=== PATIENT | female | born 1960 | race Caucasian/White ===

== ENCOUNTER 2016-10-06 08:44 | Outpatient (CLI) | payer MEDICARE, OTHER | END 2016-10-06 08:45 | disposition home or self-care (01) | DX: G47.33 Obstructive sleep apnea (adult) (pediatric) (principal) | CPT/HCPCS: 99213; G0463 ==

== ENCOUNTER 2017-10-27 08:45 | Outpatient (CLI) | payer MEDICARE, OTHER | END 2017-10-27 08:46 | disposition home or self-care (01) | LOC: SC 08:45 | PROVIDERS: ATTEND Nurse Practitioner Family | DX: G47.33 Obstructive sleep apnea (adult) (pediatric) (principal) | CPT/HCPCS: 99214; G0463; 99212 ==

== ENCOUNTER 2018-01-27 08:41 | Outpatient (CLI) | payer MEDICARE, OTHER | END 2018-01-27 08:42 | disposition home or self-care (01) | LOC: SC 08:41 | PROVIDERS: ATTEND Nurse Practitioner Family | DX: G47.33 Obstructive sleep apnea (adult) (pediatric) (principal) | CPT/HCPCS: 99214; G0463; 99212 ==

== ENCOUNTER 2019-03-30 09:06 | Outpatient (CLI) | payer MEDICARE, OTHER ==
[2019-03-30 10:19] VITALS: BP 134/70
--- NOTE | 2019-03-30 10:19 | SLEEP CARE CONSULTATION ---
Information from patient questionnaire entered by Genesis Esquivel. I have reviewed and concur with the information entered by Genesis Esquivel. This document represents the service I personally performed and the decisions made by me, Faith Hayward, RN, MSN, OCCUPATIONAL HEALTH PHYSICIAN. History of Present Illness Previous diagnosis: Mild, Obstructive Sleep Apnea-Hypopnea Syndrome AHI: 5.5 Reason for CPAP/BiPAP follow up: annual Accompanied by: Spouse Equipment type: CPAP Equipment obtained from: [employer] Mask style: Nasal (Dreamwear nasal cushion) Mask brand: Respironics Backup mask available: No (as using her spare due to stretching of headgear ) Last cushion change: last week CPAP Compliance Data - Data Reviewed with Patient Average duration of nightly device use: 7.1 Compliance rate %: 92.8 (180 days) Current pressure setting (cmH2O): 6 Humidity settin Average residual AHI: 1.4 Average large leak: 0 Subjective Missed days of use due to: reports: illness (URI) Patient concerns: reports: mask discomfort (nasal soreness tip of inner nostril right), nasal congestion, dry mouth, nose, throat (nasal dryness frequently with soreness noted in nose and reduced with use of chapstick ). denies: aerophagia, air blowing in eyes, mask leak noise, condensation in mask/hose, epistaxis (sinus pressure after use of CPAP after unable to use humidifier), other (sinus headache after uses CPAP since stopped using CPAP, no better with saline nasal spray. ) Observed to snore while using device: No On therapy, patient: reports: sleeping better, awakening more refreshed, being more awake and alert during the day, more rested overall. denies: drowsiness while driving Initial [place] Sleepiness Scale score: 9 Current [place] Sleepiness Scale score: 8 Allergies and Home Medications Known drug allergies: Yes (penicillin, ( bees, nuts, citrus) ) Home medication list reviewed: Yes Allergy and home medication list: Lorazepam 1mg tab two times daily Temazepam 15mg tab one daily at bedtime Omeprazole 20mg cap two daily Losartan/Hydrochlorothiazide 100mg tab one daily Lamotrigine (Lamictal) 100mg tab three daily at bedtime Bupropion 200mg tab twice daily Ambien 10mg tab daily at bedtime Simvastatin 20mg tab one daily at bedtime Latuda 60mg tab daily Vitamin D3 Tab twice daily Multivitamin Tab daily Stool Softener 250mg twice daily Fish Oil 1000mg twice daily Review of Systems Review of systems same as previous: Yes Physical Exam Blood Pressure: 134/70 Cuff size: long Heart Rate: 91 O2 Saturation: 97 Height: 5 ft 7 in Weight (kg): 105.052 kg Body Mass Index: 36.2 BMI Classification: Class 2 Nasal exam: positive: erythema, excoriation Impression and Plan 1. Obstructive Sleep Apnea-Hypopnea Syndrome,mild with good treatment compliance and good apnea control. On CPAP therapy, the patient has better sleep quality and is more rested overall. She has also noted less anxiety and medications have been reduced successfully by her psychiatrist. For nasal dryness, I gave her samples of Alissa Ease nasal cream to use 4 times a day for 7-10 days and as needed. Printed information given and how to obtain more if needed. To reduce sinus headache that appears to be from dryness, I advised her to have a steamy shower before bedtime to add moisture as her use of saline nasal spray does not seem enough. Her current device does not have a functioning humidifier and evidently was not able to get as tried at last visit. So since her current CPAP is over 5 years old and of reasonable use I will update her CPAP device. Newer devices have a better humidity system. I showed her the new CPAP styles and she chose Respironics Dreamstation. Since she has lost weight and plans on losing more, I discussed how significant weight loss can reduce CPAP pressure requirements. Thus she was advised of symptoms to report for pressure adjustment. Patient's apnea severity and rationale for treatment to reduce apnea, improve sleep quality and reduce cardiovascular and cerebrovascular events was reviewed. I also reviewed the benefit of consistent device use of CPAP for hypertension gastric reflux, depression/anxiety. * Update and Continue CPAP pressure at 6 cmH2O * Implement measures to reduce nasal dryness. * Notify me if snoring with mask or feeling that the pressure is too much or too little * Continue to lose weight * Return for follow up in 1 month after new device , or sooner if concerns arise I spent 100% of this [] minute visit face to face with the patient with greater than 50% of this was spent time counseling the patient and coordination of care.
== END 2019-03-30 09:07 | disposition home or self-care (01) ==
LOC: SC 09:06
PROVIDERS: ATTEND Nurse Practitioner Family
DX: G47.33 Obstructive sleep apnea (adult) (pediatric) (principal)
CPT/HCPCS: 99215; G0463; 99212

== ENCOUNTER 2019-06-27 09:07 | Outpatient (CLI) | payer MEDICARE, OTHER ==
[2019-06-27 10:23] VITALS: BP 136/68
--- NOTE | 2019-06-27 10:23 | SLEEP CARE CONSULTATION ---
Information from patient questionnaire entered by Nesha Wilson. I have reviewed and concur with the information entered by Nesha Wilson. This document represents the service I personally performed and the decisions made by me, Faith Hayward, RN, MSN, SWIMMING POOL ATTENDANT. History of Present Illness Previous diagnosis: Mild, Obstructive Sleep Apnea-Hypopnea Syndrome AHI: 5.5 Reason for follow up: first compliance after device update Accompanied by: Spouse Equipment type: CPAP Equipment obtained from: [employer] Mask style: Nasal Mask brand: Respironics (Dreamwear) Backup mask available: Yes Last cushion change: a week ago and changes every 2 weeks Prior sleep studies: Yes Year and Where: 2013 [facility] additional information: The Alissa Ease nasal cream reduced nasal irritation and now using nightly. She continues to have some irritation tip of nose inside right nare. CPAP Compliance Data - Data Reviewed with Patient Average duration of nightly device use: 7h 46m Compliance rate %: 86.7 Current pressure setting (cmH2O): 6 Humidity settin Heated hose settin Average residual AHI: 1.5 Average large leak: 0s Subjective Missed days of use due to: reports: travel (with old CPAP) Patient concerns: reports: mask leak noise (from mask dislodign 3-4 times a night), nasal congestion (chronic but not interferring with use of CPAP. She is aware to increase humidity to reduce nasal congestion. ), dry mouth, nose, throat (very dry when awakens ), other ( headache - chronic that she feels is from her sinus congestion and has had evaluated. ). denies: aerophagia, mask discomfort, air blowing in eyes, condensation in mask/hose, epistaxis Observed to snore while using device: No Current pressure setting perceived as: comfortable On therapy, patient: reports: sleeping better, awakening more refreshed, being more awake and alert during the day, more rested overall. denies: drowsiness while driving Initial [place] Sleepiness Scale score: 9 Current [place] Sleepiness Scale score: 11 Allergies and Home Medications Known drug allergies: Yes (penicillin) Home medication list reviewed: Yes (no changes - see previous visit) Review of Systems Review of systems same as previous: Yes Physical Exam Blood Pressure: 136/68 Cuff size: long Heart Rate: 77 O2 Saturation: 97 Height: 5 ft 7 in Weight: 232 lb Body Mass Index: 36.3 BMI Classification: Obesity Class 2 Impression and Plan 1. Obstructive Sleep Apnea-Hypopnea Syndrome, mild, with good treatment compliance and good apnea control on updated device. On CPAP therapy, the patient has better sleep quality and is more rested overall. For nasal irritation, no skin irritation noted on visiual exam so could be from the mask placement. She has to tighten to keep the mask from dislodging and nose feels sore. Thus I will order a headgear adaptor to keep mask from dislodging to reduce need for over tightening. Thus until then she can loosen mask a little to comfort. For dryness symptoms, she is advised to raise humidity and lower heated hose as shown on sample device. Web Printed instructions given for reference and discussed rationale for changing settings. Patient's apnea severity and rationale for treatment to reduce apnea, improve sleep quality and reduce cardiovascular and cerebrovascular events was reviewed. I also reviewed the benefit of consistent device use of CPAP for hypertension, gastric reflux, depression/anxiety. She is aware to lose weight to reduce apnea risk and overall health risk. * Continue CPAP pressure at 6cmH2O * headgear adaptor * loosen mask * Adjust humidity and heated hose * Notify me if snoring with mask or feeling that the pressure is too much or too little * Attempt to lose weight * Return for follow up in 1 year , or sooner if concerns arise . I spent 100% of this 25 minute visit face to face with the patient with greater than 50% of this was spent time counseling the patient and coordination of care.
== END 2019-06-27 09:08 | disposition home or self-care (01) ==
LOC: SC 09:07
PROVIDERS: ATTEND Nurse Practitioner Family
DX: G47.33 Obstructive sleep apnea (adult) (pediatric) (principal); E66.9 Obesity, unspecified; Z68.36 Body mass index [BMI] 36.0-36.9, adult
CPT/HCPCS: 99214; G0463; 99212

== ENCOUNTER 2020-02-01 16:28 | Emergency (ER) | payer MEDICARE, OTHER ==
[2020-02-01 16:38] VITALS: BP 160/85
[2020-02-01 17:04] LABS: BASOPHILS % (AUTO) 0.4 %; EOSINOPHILS # (AUTO) 0.2 10^3/uL (0.0-0.7); EOSINOPHILS % (AUTO) 2.2 %; LYMPHOCYTES # (AUTO) 3.4 10^3/uL (1.5-3.5); LYMPHOCYTES % (AUTO) 41.7 %; MEAN CORPUSCULAR HEMOGLOBIN 32.4 pg (27.0-31.0); MEAN CORPUSCULAR HGB CONC 34.2 g/dL (32.0-36.0); MEAN CORPUSCULAR VOLUME 94.8 fL (81.0-99.0); MEAN PLATELET VOLUME 10.3 fL (7.9-10.8); MONOCYTES # (AUTO) 0.7 10^3/uL (0.0-1.0); MONOCYTES % (AUTO) 8.6 %; NEUTROPHILS # (AUTO) 3.9 10^3/uL (1.5-6.6); PLT - PLATELET COUNT 366 10^3/uL (130-450); RED BLOOD COUNT 4.01 10^6/uL (4.20-5.40); RED CELL DISTRIBUTION WIDTH 12.9 % (12.0-15.0); WHITE BLOOD COUNT 8.2 x10^3/uL (4.8-10.8)
[2020-02-01 17:10] LABS: INR 0.9 (0.8-1.2); PT - PROTHROMBIN TIME 10.4 secs (9.9-12.6)
--- NOTE | 2020-02-01 17:13 | ED Physician Documentation ---
History of Present Illness - Stated complaint Stated Complaint: BLOOD IN STOOL/URINE - Chief complaint Chief Complaint: Abd Pain - History obtained from History obtained from: Patient - History of Present Illness Timing: Yesterday Pain level max: 5 Pain level now: 3 - Additonal information Additional information: 59-year-old female presents the emergency department with lower abdominal pain since yesterday. Rectal bleeding x3 today. She states bright red blood, the last episode had some clots in it. No fevers. No vomiting. No dysuria. No urinary frequency. Nothing makes it better or worse. She is not on blood thinners. Has never had this happen to her before. [place] [facility] [place] [facility] [place] for evaluation. Review of Systems Constitutional: denies: Fever, Chills Nose: denies: Rhinorrhea / runny nose, Congestion Throat: denies: Sore throat Cardiac: denies: Chest pain / pressure Respiratory: denies: Cough GI: reports: Bloody / black stool. denies: Vomiting, Hematemesis Skin: denies: Rash Musculoskeletal: denies: Neck pain, Back pain Neurologic: denies: Headache PD PAST MEDICAL HISTORY - Past Medical History Past Medical History: Yes Cardiovascular: Hypertension Musculoskeletal: Gout - Present Medications Home Medications: Ambulatory Orders Medication Instructions Recorded Confirmed Ciprofloxacin HCl [Cipro] 500 mg PO BID #20 tablet 02/01/20 metroNIDAZOLE [Flagyl] 500 mg PO TID #30 tablet 02/01/20 - Allergies Allergies/Adverse Reactions: Allergies Allergy/AdvReac Type Severity Reaction Status Date / Time Penicillins Allergy Unknown Verified 02/01/20 16:32 PD ED PE NORMAL - Vitals Vital signs reviewed: Yes - General General: Alert and oriented X 3, No acute distress, Well developed/nourished - HEENT HEENT: PERRL, Moist mucous membranes - Neck Neck: Supple, no meningeal sign - Cardiac Cardiac: RRR, Strong equal pulses - Respiratory Respiratory: No respiratory distress, Clear bilaterally - Abdomen Abdomen: Soft, Non tender, Non distended - Rectal 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 No bleeding. No stool in the rectal vault. No tenderness. No hemorrhoids.) - Derm Derm: Warm and dry - Extremities Extremities: No edema - Neuro Neuro: Alert and oriented X 3 - Psych Psych: Normal mood, Normal affect Results - Vitals Vitals: Vital Signs - 24 hr 02/01/20 16:32 Temperature 37.2 C Heart Rate 89 Respiratory 18 Rate Blood Pressure 160/85 H O2 Saturation 97 Oxygen O2 Source Room air - Labs Labs: Laboratory Tests 02/01/20 02/01/20 02/01/20 16:51 16:51 16:51 WBC 8.2 RBC 4.01 L Hgb 13.0 Hct 38.0 MCV 94.8 MCH 32.4 H MCHC 34.2 RDW 12.9 Plt Count 366 MPV 10.3 Neut # (Auto) 3.9 Lymph # (Auto) 3.4 [place] # (Auto) 0.7 Eos # (Auto) 0.2 Baso # (Auto) 0.0 Absolute Nucleated RBC 0.00 Nucleated RBC % 0.0 PT 10.4 INR 0.9 Sodium Potassium Chloride Carbon Dioxide Anion Gap BUN Creatinine Estimated GFR (MDRD) Glucose Calcium Total Bilirubin AST ALT Alkaline Phosphatase Total Protein Albumin Globulin Albumin/Globulin Ratio Lipase Blood Type O POSITIVE Antibody Screen NEGATIVE 02/01/20 16:51 WBC RBC Hgb Hct MCV MCH MCHC RDW Plt Count MPV Neut # (Auto) Lymph # (Auto) [place] # (Auto) Eos # (Auto) Baso # (Auto) Absolute Nucleated RBC Nucleated RBC % PT INR Sodium 139 Potassium 3.4 L Chloride 100 L Carbon Dioxide 29 Anion Gap 10.0 BUN 15 Creatinine 0.8 Estimated GFR (MDRD) 73 L Glucose 105 H Calcium 9.2 Total Bilirubin 0.5 AST 20 ALT 26 Alkaline Phosphatase 76 Total Protein 7.6 Albumin 3.9 Globulin 3.7 Albumin/Globulin Ratio 1.1 Lipase 32 Blood Type Antibody Screen - Rads (name of study) CT abdomen pelvis Radiology: Prelim report reviewed, EMP read contemporaneously PD MEDICAL DECISION MAKING - ED course Complexity details: reviewed results, re-evaluated patient, considered differential, d/w patient ED course: Patient with stable hematochezia. She is well-appearing, nontoxic. Afebrile. Appears to me that there is some inflammation near the rectosigmoid colon on CT scan, therefore I will treat her for diverticulitis. We will have her follow-up closely with her doctor. She was counseled that her pulmonary nodule also needs follow-up in 12 months with her doctor. Patient counseled regarding signs and symptoms for which I believe and urgent re-evaluation would be necessary. Patient with good understanding of and agreement to plan and is comfortable going home at this time This document was made in part using voice recognition software. While efforts are made to proofread this document, sound alike and grammatical errors may occur. 1. Colonic diverticulosis. No findings to suggest acute diverticulitis. 2. The appendix is not visualized; however there are no ancillary findings to suggest acute appendicitis. 3. 4 mm pulmonary nodule. [address] surveillance recommended. Departure - Departure Disposition: 01 Home, Self Care Clinical Impression: Lower GI bleed Condition: Good Instructions: ED Hematochezia Stable Follow-Up: ASTER DONATO MD [Primary Care Provider] - Within 3 Days Prescriptions: Ciprofloxacin HCl [Cipro] 500 mg PO BID #20 tablet metroNIDAZOLE [Flagyl] 500 mg PO TID #30 tablet Comments: Take all antibiotics until gone. Return if you worsen. This should improve over the next 24 to 48 hours. Return if you develop weakness, lightheadedness, chest pain, shortness of breath or any other new or worrisome symptoms. Discharge Date/Time: 02/01/20 18:53
[2020-02-01 17:17] LABS: ALBUMIN 3.9 g/dL (3.2-5.5); ALBUMIN/GLOBULIN RATIO 1.1 (1.0-2.2); BILIRUBIN,TOTAL 0.5 mg/dL (0.2-1.0); CALCIUM 9.2 mg/dL (8.5-10.3); CREATININE 0.8 mg/dL (0.4-1.0); TOTAL PROTEIN 7.6 g/dL (6.7-8.2)
[2020-02-01] MEDS ORDERED: IOVERSOL 320 100 ML VIAL IVP ONE ×2 (17:19→17:53)
--- NOTE | 2020-02-01 18:15 | CT Report ---
PROCEDURE: Abdomen/Pelvis W INDICATIONS: lower abd pain, rectal bleeding CONTRAST: IV CONTRAST: Optiray 320 ml: 100 PO CONTRAST: *NO PO CONTRAST TECHNIQUE: After the administration of oral and intravenous contrast, 5 mm thick sections acquired from the diap hragms to the symphysis. 5 mm thick coronal and sagittal reformats were acquired. For radiation dos e reduction, the following was used: automated exposure control, adjustment of mA and/or kV accordin g to patient size. COMPARISON: None. FINDINGS: Image quality: Excellent. ABDOMEN: Lung bases: A 4 mm nodule is present at the right lung base (series 4/image 41). Lung bases are other carter clear. Heart is normal size. Heart size is normal. Solid organs: Liver and spleen are normal in size and enhancement. Gallbladder is surgically absent Biliary system is non dilated. Pancreas enhances normally. No adrenal nodules. Kidneys demonstra te normal size and enhancement, without hydronephrosis. Peritoneum and bowel: Bowel loops demonstrate normal wall thickness and caliber. Innumerable diverti cular outpouchings are noted throughout the sigmoid colon. No pericolonic fat stranding or wall thick ening. The appendix is not visualized; however there are no ancillary findings to suggest acute appen dicitis. No free fluid or air. Nodes and vessels: No retroperitoneal or mesenteric adenopathy by size criteria. Aorta and inferior vena cava are normal in size. Miscellaneous: No ventral hernias. PELVIS: Genitourinary: Bladder wall thickness is normal. Miscellaneous: No inguinal hernias or adenopathy. Bones: No suspicious bony lesions. No vertebral body compression fractures. IMPRESSION: 1. Colonic diverticulosis. No findings to suggest acute diverticulitis. 2. The appendix is not visualized; however there are no ancillary findings to suggest acute appendici tis. 3. 4 mm pulmonary nodule. [address] surveillance recommended. Reviewed by: Lupe De La O MD on 02/01/2020 6:14 PM PDT Approved by: Lupe De La O MD on 02/01/2020 6:14 PM PDT Station ID: [id number]
[2020-02-01] MEDS ORDERED: metroNIDAZOLE 250 MG TABLET PO STA (18:39)
[2020-02-01] MEDS ORDERED: CIPROFLOXACIN 250 MG TABLET PO STA (18:39)
== END 2020-02-01 18:53 | disposition home or self-care (01) ==
LOC: ED 16:28
DX: K92.1 Melena (principal); R91.1 Solitary pulmonary nodule; I10 Essential (primary) hypertension
CPT/HCPCS: 36415; 74177; 80053; 83690; 85025; 85610; 86850; 86900; 86901; 99284; A9270; Q9967; 81001; 81003; 87086

== ENCOUNTER 2020-03-07 09:17 | Outpatient (CLI) | payer MEDICARE, OTHER ==
--- NOTE | 2020-03-07 11:11 | MRI Report ---
PROCEDURE: Knee RT W/O INDICATIONS: OSTEOARTHRITIS TECHNIQUE: Noncontrast sagittal PD fast spin echo and T2 fast spin echo with fat saturation, sagittal 3-D gradie nt sequence with fat saturation; coronal T1 spin echo and PD fast spin echo with fat saturation, and axial PD fast spin echo with fat saturation through the knee. COMPARISON: None. FINDINGS: Image quality: Excellent. Menisci: The medial meniscus is intact. There is linear oblique high T2 signal intensity traversing the free edge of the lateral meniscal body, demonstrating inferior articular surface extension, indic ating oblique tearing. Cruciate ligaments: The anterior and posterior cruciate ligaments appear intact. Medial structures: The medial collateral ligament appears intact. Visualized portions of the pes ans erinus tendons appear normal. No abnormal bursal fluid. Lateral structures: The lateral collateral ligament, long and short heads of the biceps femoris tend on appear intact. The popliteus tendon appears normal. Iliotibial band appears normal. Anterior structures: The quadriceps and patellar tendons appear intact. Patellar alignment is geoffrey l. No femoral trochlear dysplasia or ventral trochlear prominence. No edema in the infrapatellar fa t pad. Bones and cartilage: No bone marrow contusions or fractures. The cartilage of the medial and latera l femorotibial compartments, as well as the patellofemoral compartment, mild subchondral degenerative marrow edema within the anterior weightbearing aspect of the medial tibial plateau, as well as the m edial patellar facet and lateral femoral trochlea. There is moderate diffuse articular cartilage loss overlying the weightbearing aspects of the medial femoral condyle and medial tibial plateau. Severe articular cartilage loss overlies the central and lateral femoral trochlea. Severe articular cartilag e loss overlies the patellar apex and lateral facet. Joint space: There is a small knee joint effusion and a trace Combs?s cyst. Multiple intra-articula r loose bodies are present, largest of which is in the lateral suprapatellar recess measuring 10 mm d iameter. Normal appearing synovial plicae are incidentally noted. IMPRESSION: 1. Tricompartmental osteoarthritis with associated articular cartilage loss. 2. Lateral meniscal tearing. 3. Knee joint effusion and intra-articular loose body. Reviewed by: Renee Baldwin MD on 03/07/2020 10:10 AM ADRIANA Approved by: Renee Baldwin MD on 03/07/2020 10:10 AM AKCASS Station ID: [id number]
== END 2020-03-07 09:18 | disposition home or self-care (01) ==
LOC: DI 09:17
PROVIDERS: ATTEND Internal Medicine
DX: M17.11 Unilateral primary osteoarthritis, right knee (principal); S83.281A Other tear of lateral meniscus, current injury, right knee, initial encounter; M25.461 Effusion, right knee

== ENCOUNTER 2020-03-21 10:34 | Day surgery (SDC) | payer MEDICARE, OTHER ==
[2020-03-21] MEDS ORDERED: LACTATED RINGERS 1,000 ML IV ONE (10:39)
[2020-03-21] MEDS ORDERED: MIDAZOLAM 2 MG/2 ML VIAL IVP ONE (12:29)
[2020-03-21] MEDS ORDERED: fentaNYL 250 MCG/5 ML VIAL IVP ONE (12:29)
[2020-03-21] MEDS ORDERED: LIDO GARGLE 30 ML BOTTLE ONE (13:21)
[2020-03-21] MEDS ORDERED: LIDO GARGLE 30 ML BOTTLE PO ONE (13:28)
[2020-03-21] MEDS ORDERED: BENZOCAINE/TETRACAINE/BUTAMBEN 20 GM TOP ONE (13:28)
[2020-03-21 15:29] VITALS: BP 127/58
== END 2020-03-21 10:35 | disposition home or self-care (01) ==
LOC: SDS 10:34
PROVIDERS: ATTEND Surgery
PROC: 0DB78ZX Excision of Stomach, Pylorus, Via Natural or Artificial Opening Endoscopic, Diagnostic (ICD-10-PCS; 2020-03-21)
PROC: 0DB68ZX Excision of Stomach, Via Natural or Artificial Opening Endoscopic, Diagnostic (ICD-10-PCS; 2020-03-21)
PROC: 0DJD8ZZ Inspection of Lower Intestinal Tract, Via Natural or Artificial Opening Endoscopic (ICD-10-PCS; principal; 2020-03-21 12:00)
PROC: 0DB58ZX Excision of Esophagus, Via Natural or Artificial Opening Endoscopic, Diagnostic (ICD-10-PCS; 2020-03-21 12:00)
DX: K62.5 Hemorrhage of anus and rectum (principal); R10.30 Lower abdominal pain, unspecified; K57.30 Diverticulosis of large intestine without perforation or abscess without bleeding; K64.8 Other hemorrhoids; K21.9 Gastro-esophageal reflux disease without esophagitis; Z87.19 Personal history of other diseases of the digestive system; K56.699 Other intestinal obstruction unspecified as to partial versus complete obstruction
CPT/HCPCS: 43239; 45378; A9270; J7120

== ENCOUNTER 2020-06-20 10:42 | Outpatient (CLI) | payer MEDICARE, OTHER ==
--- NOTE | 2020-06-20 11:30 | SLEEP CARE CONSULTATION ---
Information from patient questionnaire entered by Genesis Esquivel. I have reviewed and concur with the information entered by Genesis Esquivel. This document represents the service I personally performed and the decisions made by , Jayshree Crespo ARNP. History of Present Illness Service Date and Time: 06/20/2020 1042 Previous diagnosis: Mild, Obstructive Sleep Apnea-Hypopnea Syndrome AHI: 5.5 (in 2013) Reason for follow up: annual (last seen 2019) Equipment type: CPAP Equipment obtained from: [employer] (getting supplies as needed) Mask style: Nasal Mask brand: Respironics (Dreamwear) Backup mask available: Yes (old mask) Last cushion change: 2 days ago Prior sleep studies: Yes Year and Where: 2013 - [facility] additional information: AMOL EDWARDS was diagnosed to have mild, AHI 5.5, obstructive sleep apnea- hypopnea syndrome and returned today for CPAP therapy annual follow-up. CPAP Compliance Data - Data Reviewed with Patient Average duration of nightly device use: 7.95 Compliance rate %: 99.4 (180 days) Current pressure setting (cmH2O): 6 Humidity settin Heated hose settin Average residual AHI: 1.4 Average large leak: 1 min 29 sec Subjective Patient concerns: reports: air blowing in eyes (every once in a while that adjust well, no complaints), dry mouth, nose, throat (dry nose, uses Alissa ease). denies: aerophagia, mask discomfort, mask leak noise, condensation in mask/hose, nasal congestion, epistaxis, other Observed to snore while using device: No Current pressure setting perceived as: comfortable On therapy, patient: reports: sleeping better, awakening more refreshed, being more awake and alert during the day, more rested overall, other (occasionally sleeping in chair since Covid). denies: drowsiness while driving Initial [place] Sleepiness Scale score: 18 (in 2013) Allergies and Home Medications Drug allergies reviewed: Yes (penicillins) Home medication list reviewed: Yes (no changes) Review of Systems Review of systems same as previous: Yes (no changes) Physical Exam Heart Rate: 81 O2 Saturation: 98 Height: 5 ft 7 in Weight: 233 lb Body Mass Index: 36.5 BMI Classification: Obese Impression and Plan 1. Obstructive Sleep Apnea-Hypopnea Syndrome, mild, with good treatment compliance and good apnea control. On CPAP therapy, the patient has better sleep quality and is more rested overall. She occasionally gets some nasal dryness with CPAP therapy and is using the Alissa ease with good results. She gets a little air in eyes occasionally but a mask adjustment corrects this, no complaint of dry eyes. Patient's apnea severity and rationale for treatment to reduce apnea, improve sleep quality and reduce cardiovascular and cerebrovascular events was reviewed. I also reviewed the benefit of consistent device use of CPAP for hypertension, gastric reflux, and depression/anxiety. * Continue autoCPAP pressure at 6 cmH2O * Notify me if snoring with mask or feeling that the pressure is too much or too little * Attempt to lose weight * Call this office if any problems using CPAP * Return for follow up in 1 year, or sooner if concerns arise Counseling Topics: Spare mask, Weight loss health impact Visit Type: In Office Time Spent with Patient (minutes): 16 Provider Statement: I spent 100% of the Face to Face Visit with the patient with greater than 50% spent counseling the patient and coordination of care.
== END 2020-06-20 10:43 | disposition home or self-care (01) ==
LOC: SC 10:42
PROVIDERS: ATTEND Nurse Practitioner Family
DX: G47.33 Obstructive sleep apnea (adult) (pediatric) (principal); E66.9 Obesity, unspecified; Z68.36 Body mass index [BMI] 36.0-36.9, adult
CPT/HCPCS: 99213; G0463; 99212

== ENCOUNTER 2021-04-22 10:42 | Outpatient (CLI) | payer MEDICARE, OTHER ==
--- NOTE | 2021-04-25 10:35 | Mammography Report ---
BILATERAL DIGITAL SCREENING MAMMOGRAM 3D/2D: 04/22/2021 CLINICAL: Routine screening. Comparison is made to exams dated: 06/21/2017 mammogram, 06/02/2016 mammogram, 05/30/2015 mammogram, 05/21/2014 mammogram, and 06/01/2013 mammogram - [facility]. The tissue of both breasts is p redominantly fatty. There is a 1 cm x 1.2 cm oval asymmetry with a circumscribed margin in the left breast at 1 o'clock p osterior depth. No other significant masses, calcifications, or other findings are seen in either breast. IMPRESSION: INCOMPLETE: NEEDS ADDITIONAL IMAGING EVALUATION The 1 cm x 1.2 cm oval asymmetry in the left breast is indeterminate. Additional views with possible ultrasound are recommended. This exam was interpreted at Station ID: [id number]. NOTE: For mammograms, a report in lay terms will be sent to the patient. Approximately 15% of breast malignancies will not be visualized mammographically. In the management of a palpable breast mass, a negative mammogram must not discourage biopsy of a clinically suspicious lesion. Electronically Signed By: Jeet Peter acr/:04/25/2021 09:56:26 ACR BI-RADS Category 0: Incomplete 3340F PARENCHYMAL PATTERN: (F) - The breast(s) demonstrate(s) diffuse fatty replacement. BI-RADS CATEGORY: (0) - 0 Mammo and [place] [id number] Immediate follow-up LATERALITY: (L)
== END 2021-04-22 10:43 | disposition home or self-care (01) ==
LOC: DI.N 10:42
DX: Z12.31 Encounter for screening mammogram for malignant neoplasm of breast (principal); R92.8 Other abnormal and inconclusive findings on diagnostic imaging of breast

== ENCOUNTER 2021-05-23 10:40 | Outpatient (CLI) | payer MEDICARE, OTHER ==
--- NOTE | 2021-05-26 10:38 | Ultrasound Report ---
LIMITED ULTRASOUND OF LEFT BREAST: 05/23/2021 CLINICAL: Patient returns today to evaluate a focal asymmetry in the left breast. Comparison is made to exams dated: 05/23/2021 mammogram, 04/22/2021 mammogram - [facility], 06/21/2018 mammogram, and 06/21/2017 mammogram - [facility]. Color flow ultrasound of the left breast 2 o'clock region was performed. Singh scale images of the r eal-time examination were reviewed. There is a benign 1 cm x 0.9 cm x 0.5 cm oval cyst with a smooth internal wall in the left breast at 2 o'clock middle depth 7 cm from the nipple. This oval cyst is anechoic with a well-defined boundary and posterior acoustic enhancement. This correlates with mammography findings. IMPRESSION: BENIGN There is no sonographic evidence of malignancy. The 1 cm x 0.9 cm x 0.5 cm oval cyst in the left breast is consistent with a simple cyst and is benig n. A 1 year screening mammogram is recommended. This exam was interpreted at Station ID: [id number]. Electronically Signed By: Dillon richardson/cherry:05/23/2021 12:06:56 Ultrasound BI-RADS: 2 Benign BI-RADS CATEGORY: (2) - 2 RECOMMENDATION: (ANNUAL) - Recommend routine annual screening mammography. [id number] 1 year screening LATERALITY: (B)
--- NOTE | 2021-05-26 10:38 | Mammography Report ---
UNILATERAL LEFT DIGITAL DIAGNOSTIC MAMMOGRAM 3D/2D: 05/23/2021 CLINICAL: Patient returns today to evaluate a focal asymmetry in the left breast. Comparison is made to exams dated: 04/22/2021 mammogram - [facility], 06/21/2018 mamm ogram, and 06/21/2017 mammogram - [facility]. There are scattered fibroglandular elements in left breast. There is a 1 cm oval focal asymmetry with a circumscribed margin in the left breast at 2 o'clock post erior depth. This is seen in additional views. No other significant masses or calcifications are seen in the breast. IMPRESSION: INCOMPLETE: NEEDS ADDITIONAL IMAGING EVALUATION The 1 cm oval focal asymmetry in the left breast is indeterminate. Targeted ultrasound is recommende d for further evaluation, which will be performed immediately following this exam. This exam was interpreted at Station ID: [id number]. NOTE: For mammograms, a report in lay terms will be sent to the patient. Approximately 15% of breast malignancies will not be visualized mammographically. In the management of a palpable breast mass, a negative mammogram must not discourage biopsy of a clinically suspicious lesion. Electronically Signed By: Dillon richardson/cherry:05/23/2021 12:05:58 ACR BI-RADS Category 0: Incomplete 3340F PARENCHYMAL PATTERN: (A) - The breast(s) demonstrate(s) scattered fibroglandular densities. BI-RADS CATEGORY: (0) - 0 Ultrasound [id number] Immediate follow-up LATERALITY: (L)
== END 2021-05-23 10:41 | disposition home or self-care (01) ==
LOC: DI 10:40
PROVIDERS: ATTEND Internal Medicine
DX: N60.02 Solitary cyst of left breast (principal)

== ENCOUNTER 2021-07-31 11:03 | Outpatient (CLI) | payer MEDICARE, OTHER ==
[2021-07-31 11:45] VITALS: BP 116/73
--- NOTE | 2021-07-31 11:45 | SLEEP CARE CONSULTATION ---
Information from patient questionnaire entered by Julien Morillo MA. I have reviewed and concur with the information entered by Julien Morillo MA. This document represents the service I personally performed and the decisions made by , Jayshree Crespo ARNP. History of Present Illness Service Date and Time: 07/31/2021 1103 Previous diagnosis: Mild, Obstructive Sleep Apnea-Hypopnea Syndrome AHI: 5.5 (in 2013) Reason for follow up: annual Equipment type: CPAP Equipment obtained from: [employer] (getting supplies as needed) Mask style: Nasal Mask brand: Respironics Backup mask available: Yes (old mask) Last cushion change: today Prior sleep studies: Yes Year and Where: 2013 - [facility] HPI additional information: AMOL EDWARDS was diagnosed to have mild, AHI 5.5, obstructive sleep apnea-hypopn ea syndrome and returned today for CPAP therapy annual follow-up. Sleep Study - Results Prior sleep studies: Yes [facility] Compliance Data - Data Reviewed with Patient Average duration of nightly device use: 7 HOURS 31 MINUTES Compliance rate %: 95.6 Current pressure setting (cmH2O): 6 Humidity settin Heated hose settin Average residual AHI: 1.7 Average large leak: 5 secs Subjective Missed days of use due to: reports: other (CANT SLEEP) Patient concerns: reports: mask leak noise (just needs adjustment), nasal congestion, dry mouth, nose, throat (dry mouth, nose, throat). denies: aerophagia, mask discomfort, air blowing in eyes, condensation in mask/hose, epistaxis, other Observed to snore while using device: No Current pressure setting perceived as: comfortable On therapy, patient: reports: sleeping better, awakening more refreshed, being more awake and alert during the day, more rested overall. denies: drowsiness while driving Initial [place] Sleepiness Scale score: 18 (in 2013) Current [place] Sleepiness Scale score: 4 (2020) Allergies and Home Medications Known drug allergies: Yes ([facility]) Home medication list reviewed: Yes (no new medications) Review of Systems Review of systems same as previous: Yes (no changes) Physical Exam Vital signs obtained and entered by: Isabel MORILLO CMA AABECKI Blood Pressure: 116/73 (LEFT) Cuff size: wrist Heart Rate: 92 O2 Saturation: 98 (WITH MASK) Height: 5 ft 7 in Weight: 229 lb (WITH CLOTHES) Body Mass Index: 35.9 BMI Classification: Obese Impression and Plan 1. Obstructive Sleep Apnea-Hypopnea Syndrome, mild, with good treatment compliance and good apnea control. On CPAP therapy, the patient has better sleep quality and is more rested overall. Patient has had some oral and nasal dryness. Oral dryness can be reduced by adjusting humidity setting higher or heated hose lower or by adjusting both settings. Printed instructions given on how to change humidity and heated hose settings with rationale explaining why to change. Patient advised that chronic oral dryness can affect dental health and advised to follow up with dentist. In addition, there are oral dryness products that can be used to reduce dryness such as Biotene products, Dry mouth rinse and Xylomelts. Patient to discuss best option with dentist. Patient has a Dreamstation. I informed the patient that [employer] has a recall on several devices like the patients machine. Patient was encouraged to register their device online with [employer] for the recall to see if their device is affected. If their device is affected they should start a claim. Patient denies any black particles seen in machine or hoses, any unusual odors coming from device. Patient has not experienced any physical symptoms such as upper airway irritation, headache, skin or eye irritation, asthma, nausea/vomiting, difficulty breathing or chest pain. If patient is not able to sleep due to waking up choking, gasping for air or other respiratory distress that they may decide to continue using it until it is either replaced or repaired. Patient states she will continue to use the CPAP and monitor for any debris. Patient voiced understanding and agreement with plan. Patient's apnea severity and rationale for treatment to reduce apnea, improve sleep quality and reduce cardiovascular and cerebrovascular events was reviewed. I also reviewed the benefit of consistent device use of CPAP for hypertension, gastric reflux, depression and anxiety. Patient encouraged to lose weight to improve overall health and to reduce apneas. * Continue CPAP pressure at 6 cmH2O * Patient to register her CPAP with [employer] for recall * Notify me if snoring with mask or feeling that the pressure is too much or too little * Attempt to lose weight * Call this office if any problems using CPAP * Return for follow up in 1 year, or sooner if concerns arise Counseling Topics: Spare mask, Weight loss health impact Visit Type: In Office Time Spent with Patient (minutes): 20 Provider Statement: I spent 100% of the Face to Face Visit with the patient with greater than 50% spent counseling the patient and coordination of care.
== END 2021-07-31 11:04 | disposition home or self-care (01) ==
LOC: SC 11:03
PROVIDERS: ATTEND Nurse Practitioner Family
DX: G47.33 Obstructive sleep apnea (adult) (pediatric) (principal); E66.9 Obesity, unspecified; Z68.35 Body mass index [BMI] 35.0-35.9, adult
CPT/HCPCS: 99213; G0463; 99212

== ENCOUNTER 2022-02-23 14:06 | Outpatient (CLI) | payer MEDICARE, OTHER ==
--- NOTE | 2022-02-23 16:59 | DEXA Report ---
PROCEDURE: Dexa Spine and/or Hip INDICATIONS: POSTMENOPAUSAL TECHNIQUE: Dual energy x-ray absorptiometry (DXA) was performed on a [employer] System. Regions measur ed are the AP Spine, femoral neck, and if needed forearm. COMPARISON: None. FINDINGS: Lumbar Spine: Bone Mineral Density 1.240 g/cm/cm,T score 0.5. Left Hip: Bone Mineral Density 0.970 g/cm/cm,T score -0.3. Left Femoral Neck: Bone Mineral Density 1.002 g/cm/cm, T score -0.3. (T score greater or equal to -1.0: NORMAL) (T score from -1.1 to -2.4: OSTEOPENIA) (T score less than or equal to -2.5 to: OSTEOPOROSIS) Impression: Normal bone mineral density. Patients with diagnosis of osteoporosis or osteopenia should have regular bone mineral density assess ment. For those eligible for Medicare, routine testing is allowed once every 2 years. Testing frequ ency can be increased for patients who have rapidly progressing disease or for those who are receivin g medical therapy to restore bone mass. Reviewed by: Eduin Agustin MD on 02/23/2022 4:58 PM PDT Approved by: Eduin Agustin MD on 02/23/2022 4:58 PM PDT Station ID: [id number]
== END 2022-02-23 14:07 | disposition home or self-care (01) ==
LOC: DI 14:06
PROVIDERS: ATTEND Nurse Practitioner Family
DX: Z78.0 Asymptomatic menopausal state (principal)

== ENCOUNTER 2022-07-03 16:15 | Outpatient (CLI) | payer MEDICARE, OTHER | END 2022-07-03 16:16 | disposition home or self-care (01) | LOC: LAB.N 16:15 | PROVIDERS: ATTEND Nurse Practitioner Family | DX: M10.9 Gout, unspecified (principal) | CPT/HCPCS: 36415; 84550 ==

== ENCOUNTER 2022-09-08 14:55 | Outpatient (CLI) | payer MEDICARE, OTHER ==
[2022-09-08 15:41] VITALS: BP 114/68
--- NOTE | 2022-09-08 15:41 | SLEEP CARE CONSULTATION ---
Information from patient questionnaire entered by Marbin Zepeda. I have reviewed and concur with the information entered by Marbin Zepeda. This document represents the service I personally performed and the decisions made by me, Jayshree Crespo ARNP. History of Present Illness Service Date and Time: 09/08/2022 1455 Previous diagnosis: Mild, Obstructive Sleep Apnea-Hypopnea Syndrome AHI: 5.5 (in 2013) Reason for follow up: annual (LAST SEEN 07/2021) Equipment type: CPAP ([employer] Dreamstation, recertified) Equipment obtained from: [employer] (getting supplies as needed) Mask style: Nasal Backup mask available: Yes (old mask) Last cushion change: 1 week Prior sleep studies: Yes Year and Where: 2013 - [facility] additional information: AMOL EDWARDS was diagnosed to have mild, AHI 5.5, obstructive sleep apnea- hypopnea syndrome and returned today for CPAP therapy annual follow-up. Sleep Study - Results Prior sleep studies: Yes Year and Where: 2013 - [facility] CPAP Compliance Data - Data Reviewed with Patient Average duration of nightly device use: 7 hours 27 minutes Compliance rate %: 92.2 (176/180 days used) Current pressure setting (cmH2O): 4-20 (90% - 6 cmH2O) Average residual AHI: 1.7 Central apnea: 0.3 Obstructive apnea: 0.6 Average large leak: 1 min 46 secs Subjective Patient concerns: reports: air blowing in eyes. denies: aerophagia, mask discomfort, mask leak noise, condensation in mask/hose, nasal congestion, dry mouth, nose, throat, epistaxis Observed to snore while using device: No Current pressure setting perceived as: comfortable () On therapy, patient: reports: sleeping better, awakening more refreshed, being more awake and alert during the day, more rested overall. denies: drowsiness while driving Initial [place] Sleepiness Scale score: 18 (in 2013) Current [place] Sleepiness Scale score: 7 (09/08/22) Allergies and Home Medications Drug allergies reviewed: Yes (penicillins) Home medication list reviewed: Yes (no changes) Review of Systems Review of systems same as previous: Yes (no changes) Physical Exam Vital signs obtained and entered by: MARBIN Seth MA Blood Pressure: 114/68 (LEFT ARM) Cuff size: regular Heart Rate: 83 O2 Saturation: 98 Height: 5 ft 7 in Weight: 212 lb Weight change since last visit: 17 lb loss Body Mass Index: 33.2 BMI Classification: Obese Impression and Plan 1. Obstructive Sleep Apnea-Hypopnea Syndrome, mild, with good treatment compliance and good apnea control. On CPAP therapy, the patient has better sleep quality and is more rested overall. Patient has significant improvement of their sleep apnea and are satisfied with current CPAP therapy. Patient would like the pressure adjusted, she sometimes feels it is too low. Her pressure setting used to be at 6 cmH2O and now with her replacement device from [employer] it is set at 4-20 cmH2O. The patients pressure will be changed to autoCPAP 5-7 cmH20 for patient comfort. Patient advised to contact me if pressure change is uncomfortable so that it can be adjusted. Goals for apnea control discussed. Patient denies problems with oral dryness, nasal congestion, epistaxis, skin irritation or aerophagia. Patient's apnea severity and rationale for treatment to reduce apnea, improve sleep quality and reduce cardiovascular and cerebrovascular events was reviewed. I also reviewed the benefit of consistent device use of CPAP for hypertension, gastric reflux, depression and anxiety. 2. Obesity, unspecified. Currently patients BMI is 33.2. She has lost about 17 pounds since starting water aerobics 5 days a week for an hour. She states she feels better physically and emotionally than she did before she started exercising. Obesity increases the risk of apnea, CPAP pressure requirements and overall health risks especially cardiovascular and diabetes. Thus patient is advised to continue to try to lose weight. * Change auto CPAP pressure to 5-7 cmH2O * Update supplies * Notify me if snoring with mask or feeling that the pressure is too much or too little * Attempt to lose weight * Call this office if any problems using CPAP * Return for follow up in 1 year, or sooner if concerns arise Counseling Topics: Spare mask, Weight loss health impact Visit Type: In Office Time Spent with Patient (minutes): 23 Provider Statement: I spent 100% of the Face to Face Visit with the patient with greater than 50% spent counseling the patient and coordination of care.
== END 2022-09-08 14:56 | disposition home or self-care (01) ==
LOC: SC 14:55
PROVIDERS: ATTEND Nurse Practitioner Family
DX: G47.33 Obstructive sleep apnea (adult) (pediatric) (principal); E66.9 Obesity, unspecified; Z68.33 Body mass index [BMI] 33.0-33.9, adult
CPT/HCPCS: 99213; G0463; 99212

== ENCOUNTER 2022-09-10 12:08 | Outpatient (CLI) | payer MEDICARE, OTHER ==
--- NOTE | 2022-09-11 11:45 | Mammography Report ---
BILATERAL DIGITAL SCREENING MAMMOGRAM 3D/2D: 09/10/2022 CLINICAL: Routine screening. Comparison is made to exams dated: 05/23/2021 ultrasound, 05/23/2021 mammogram, 04/22/2021 mammogram - [facility], 06/21/2018 mammogram, 06/21/2017 mammogram, and 06/02/2016 mammogram - [facility]. Both breasts are heterogeneously dense, which may obscure small masses (category c / 51-75% glandular tissue). There are benign masses in both breasts. No significant masses, calcifications, or other findings are seen in either breast. There has been no significant interval change. IMPRESSION: BENIGN There is no mammographic evidence of malignancy. A 1 year screening mammogram is recommended. Based on the Tyrer Cuzick model (a risk assessment model) the patients lifetime risk is 7.3% and her 10 year risk is 3.1%. According to the ACR, ACS, and NCCN guidelines, an annual breast MRI exam jossie g with mammogram is recommended if the patients lifetime risk is 20% or greater. This exam was interpreted at Station ID: [id number]. NOTE: For mammograms, a report in lay terms will be sent to the patient. Approximately 15% of breast malignancies will not be visualized mammographically. In the management of a palpable breast mass, a negative mammogram must not discourage biopsy of a clinically suspicious lesion. Electronically Signed By: Andres conrad/penrad:09/10/2022 17:15:12 ACR BI-RADS Category 2: Benign Finding(s) 3342F PARENCHYMAL PATTERN: (D) - The breast(s) demonstrate(s) heterogeneously dense fibroglandular roland noguera. BI-RADS CATEGORY: (2) - 2 RECOMMENDATION: (ANNUAL) - Recommend routine annual screening mammography. [id number] 1 year screening LATERALITY: (B)
== END 2022-09-10 12:09 | disposition home or self-care (01) ==
LOC: DI.N 12:08
DX: Z12.31 Encounter for screening mammogram for malignant neoplasm of breast (principal)

== ENCOUNTER 2022-12-17 08:50 | Outpatient (CLI) | payer MEDICARE, OTHER ==
[2022-12-17 11:51] LABS: BASOPHILS % (AUTO) 0.4 %; EOSINOPHILS # (AUTO) 0.3 10^3/uL (0.0-0.7); EOSINOPHILS % (AUTO) 4.5 %; HGB - HEMOGLOBIN 12.6 g/dL (12.0-16.0); LYMPHOCYTES # (AUTO) 2.5 10^3/uL (1.5-3.5); LYMPHOCYTES % (AUTO) 32.9 %; MEAN CORPUSCULAR HEMOGLOBIN 30.7 pg (27.0-31.0); MEAN CORPUSCULAR HGB CONC 32.3 g/dL (32.0-36.0); MEAN CORPUSCULAR VOLUME 94.9 fL (81.0-99.0); MONOCYTES # (AUTO) 0.5 10^3/uL (0.0-1.0); MONOCYTES % (AUTO) 6.4 %; NEUTROPHILS # (AUTO) 4.3 10^3/uL (1.5-6.6); NEUTROPHILS % (AUTO) 55.7 %; PLT - PLATELET COUNT 371 10^3/uL (130-450); RED BLOOD COUNT 4.11 10^6/uL (4.20-5.40); RED CELL DISTRIBUTION WIDTH 12.5 % (12.0-15.0); WHITE BLOOD COUNT 7.6 x10^3/uL (4.8-10.8)
[2022-12-17 13:02] LABS: ESTIMATED AVERAGE GLUCOSE 100 mg/dL (70-100); HEMOGLOBIN A1c% 5.1 % (4.27-6.07)
[2022-12-17 13:55] LABS: ALBUMIN/GLOBULIN RATIO 1.1 (1.0-2.2); ALKALINE PHOSPHATASE 106 IU/L (42-121); ALT ALANINE AMINOTRANSFERASE 31 IU/L (10-60); AST ASPARTATE AMINOTRANSFERASE 24 IU/L (10-42); BILIRUBIN,TOTAL 0.6 mg/dL (0.2-1.0); BUN - BLOOD UREA NITROGEN 15 mg/dL (6-20); CALCIUM 9.3 mg/dL (8.5-10.3); CARBON DIOXIDE - CO2 26 mmol/L (21-32); CHLORIDE 106 mmol/L (101-111); CHOL/HDL RATIO 3.3 (<4.4); CHOLESTEROL 198 mg/dL; CREATININE 0.8 mg/dL (0.4-1.0); GFR - MDRD 72 (>89); GLUCOSE 98 mg/dL (70-100); HDL CHOLESTEROL 60 mg/dL; LDL CHOLESTEROL,CALCULATED 94 mg/dL; LDL/HDL RATIO 1.6 (<4.4); POTASSIUM 3.8 mmol/L (3.5-5.0); SODIUM 139 mmol/L (135-145); TOTAL PROTEIN 7.5 g/dL (6.7-8.2); TRIGLYCERIDES 221 mg/dL; VLDL CHOLESTEROL 44 mg/dL
[2022-12-17 13:58] LABS: THYROID STIMULATING HORMONE 0.55 uIU/mL (0.34-5.60)
== END 2022-12-17 08:51 | disposition home or self-care (01) ==
LOC: LAB.N 08:50
PROVIDERS: ATTEND Nurse Practitioner Family
DX: E78.5 Hyperlipidemia, unspecified (principal); I10 Essential (primary) hypertension; E66.9 Obesity, unspecified; Z79.899 Other long term (current) drug therapy
CPT/HCPCS: 36415; 80053; 80061; 83036; 83721; 83735; 84443; 85025

== ENCOUNTER 2023-04-05 14:52 | Emergency (ER) | payer MEDICARE, OTHER ==
[2023-04-05 15:12] LABS: BASOPHILS # (AUTO) 0.1 10^3/uL (0.0-0.1); BASOPHILS % (AUTO) 0.5 %; EOSINOPHILS # (AUTO) 0.3 10^3/uL (0.0-0.7); EOSINOPHILS % (AUTO) 3.4 %; HCT - HEMATOCRIT 37.4 % (37.0-47.0); HGB - HEMOGLOBIN 12.5 g/dL (12.0-16.0); LYMPHOCYTES # (AUTO) 3.9 10^3/uL (1.5-3.5); LYMPHOCYTES % (AUTO) 40.4 %; MEAN CORPUSCULAR HEMOGLOBIN 30.5 pg (27.0-31.0); MEAN CORPUSCULAR HGB CONC 33.4 g/dL (32.0-36.0); MEAN CORPUSCULAR VOLUME 91.2 fL (81.0-99.0); MEAN PLATELET VOLUME 9.9 fL (7.9-10.8); MONOCYTES % (AUTO) 10.8 %; NEUTROPHILS # (AUTO) 4.3 10^3/uL (1.5-6.6); NEUTROPHILS % (AUTO) 44.6 %; PLT - PLATELET COUNT 405 10^3/uL (130-450); RED CELL DISTRIBUTION WIDTH 12.5 % (12.0-15.0); WHITE BLOOD COUNT 9.6 x10^3/uL (4.8-10.8)
[2023-04-05] MEDS ORDERED: SODIUM CHLORIDE 0.9% 1,000 ML IV STA (15:13)
--- NOTE | 2023-04-05 15:16 | ED Physician Documentation ---
PD HPI CHEST PAIN - Stated complaint Stated Complaint: CHEST PX,NUMBNESS - Chief complaint Chief Complaint: Cardiac - History obtained from History obtained from: Patient - Additional information Additional information: Patient is a 62-year-old female with a history of hypertension and hyperlipidemia presenting for evaluation of left-sided chest pain that feels like a tight band wrapping around her chest starting approximately 25 minutes prior to arrival. Patient states she was just sitting there. She reports feeling associated nausea. She got up and went to have a bowel movement which did not change her symptoms. Her has a history of coronary artery disease and carries nitro with him. He gave her 2 doses of nitroglycerin. Patient reports that currently she is symptom-free. Patient went to her water aerobics class this morning and denies having any episodes of chest pain or feeling decreased energy or shortness of air. She did recently just get over COVID at the beginning of the month. Denies fever in the past few days. She does not take aspirin regularly.No recent travel or immobilization.No history of PE or DVT. Review of Systems Constitutional: denies: Fever Cardiac: reports: Chest pain / pressure Respiratory: denies: Dyspnea GI: denies: Abdominal Pain Musculoskeletal: denies: Back pain PD PAST MEDICAL HISTORY - Past Medical History Cardiovascular: Hypertension Respiratory: None Neuro: None Endocrine/Autoimmune: None GI: None GRID MAKER: None : None HEENT: None Psych: None Musculoskeletal: Gout Derm: None - Past Surgical History Past Surgical History: Yes General: Cholecystectomy, Colonoscopy /GRID MAKER: Hysterectomy - Present Medications Home Medications: Ambulatory Orders Medication Instructions Recorded Confirmed Colchicine 0.6 mg PO DAILY 03/21/20 09/08/22 Cyanocobalamin (Vitamin B-12) 1,000 mcg PO DAILY 03/21/20 09/08/22 [Vitamin B-12] Estrogens, Conjugated [Premarin] 0.625 mg PO DAILY 03/21/20 09/08/22 Lurasidone HCl [Latuda] 60 mg PO DAILY 03/21/20 09/08/22 Omeprazole 20 mg PO DAILY 03/21/20 09/08/22 Simvastatin 20 mg PO DAILY 03/21/20 09/08/22 Zolpidem Tartrate 10 mg PO DAILY 03/21/20 09/08/22 amLODIPine [Norvasc] 5 mg PO ONCE 03/21/20 09/08/22 - Allergies Allergies/Adverse Reactions: Allergies Allergy/AdvReac Type Severity Reaction Status Date / Time Penicillins Allergy Unknown Verified 09/08/22 15:06 - Social History Does the pt smoke?: No Smoking Status: Never smoker Does the pt drink ETOH?: No Does the pt have substance abuse?: No - Immunizations Immunizations are current?: Yes PD ED PE NORMAL - General General: Alert and oriented X 3, No acute distress, Well developed/nourished - HEENT HEENT: Atraumatic - Neck Neck: Supple, no meningeal sign - Cardiac Cardiac: RRR, No murmur, Strong equal pulses - Respiratory Respiratory: No respiratory distress, Clear bilaterally - Abdomen Abdomen: Soft, Non tender, Non distended - Derm Derm: Warm and dry - Extremities Extremities: No calf tenderness / cord - Neuro Neuro: Normal speech Results - Vitals Vitals: Vital Signs - 24 hr 04/05/23 14:56 Temperature 36.0 C L Heart Rate 79 Respiratory 24 Rate Blood Pressure 104/58 L O2 Saturation 98 Oxygen O2 Source Room air - EKG (time done) 1505 EKG releavant findings:: EKG personally interpreted by author of this note. Relevant findings are: Rate 73, normal sinus rhythm, no STEMI, no ST depressions, motion artifact in inferior leads Rate: Rate (enter#) (73) Rhythm: NSR Ischemia: No: ST elevation c/w ischemia Compare to prior EKG: Old EKG unavailable 1531 EKG releavant findings:: EKG personally interpreted by author of this note. Relevant findings are: Rate 68, normal sinus rhythm, no STEMI, no ST depressions Rate: Rate (enter#) (68) Rhythm: NSR Ischemia: No: ST elevation c/w ischemia Compare to prior EKG: Changed from prior EKG (Artifact in inferior leads is improved) - Labs Labs: Laboratory Tests 04/05/23 04/05/23 04/05/23 15:05 15:05 17:15 WBC 9.6 RBC 4.10 L Hgb 12.5 Hct 37.4 MCV 91.2 MCH 30.5 MCHC 33.4 RDW 12.5 Plt Count 405 MPV 9.9 Neut # (Auto) 4.3 Lymph # (Auto) 3.9 H [place] # (Auto) 1.0 Eos # (Auto) 0.3 Baso # (Auto) 0.1 Absolute Nucleated RBC 0.00 Nucleated RBC % 0.0 Sodium 137 Potassium 3.7 Chloride 101 Carbon Dioxide 27 Anion Gap 9.0 BUN 10 Creatinine 0.8 Estimated GFR (MDRD) 72 L Glucose 105 H Calcium 10.2 Total Bilirubin 0.6 AST 33 ALT 55 Alkaline Phosphatase 166 H Troponin I High Sens 3.2 3.2 Total Protein 8.0 Albumin 4.4 Globulin 3.6 Albumin/Globulin Ratio 1.2 Lipase 18 PD Medical Decision Making - ED course Complexity details: reviewed results, re-evaluated patient, d/w patient ED course: Patient is a 62-year-old female presenting for evaluation of chest pain lasting 20 minutes while at rest that is since resolved. EKG is reviewed and nonischemic. CBC, chemistry, troponin were obtained and reviewed without significant findings. Chest x-ray which I reviewed is negative for large effusion or consolidation. Patient is remained chest pain-free here. She is low risk per the heart score. Repeat troponin remains negative and without a significant delta from initial. Patient counseled on need for close follow-up with her primary care provider as well as concerning symptoms to return for. 1608 - Patient is resting comfortably with no further chest pain. Reviewed labs from initial work-up and plan for repeat troponin. 1752 - Patient feeling well. No recurrence of symptoms here. Departure - Departure Disposition: 01 Home, Self Care Clinical Impression: Chest pain Condition: Stable Instructions: ED Chest Pain Atypical Unkn Cause Follow-Up: Margarette Cook ARNP [Provider Admit Priv/Credential] - Comments: At this time the exact cause for your chest pain remains unclear. I do recommend close follow-up with your primary care provider and would recommend you call tomorrow for the first available appointment As you may need further testing such as a stress test. In the meanwhile if you develop any recurrence of your symptoms or have any new symptoms then please return to the emergency department for another evaluation. In the meanwhile if you are able to tolerate it I would recommend taking a baby aspirin daily until you follow-up with your primary care provider. Forms: PCP List
[2023-04-05 15:30] LABS: ALBUMIN 4.4 g/dL (3.2-5.5)
[2023-04-05 15:36] LABS: TROPONIN I HIGH SENSITIVITY 3.2 ng/L (2.3-14.8)
--- NOTE | 2023-04-05 15:45 | XRAY Report ---
PROCEDURE: Chest 1 View X-Ray INDICATIONS: Chest pain TECHNIQUE: One view of the chest was acquired. COMPARISON: None. FINDINGS: Surgical changes and devices: None. Lungs and pleura: or pneumothorax. Lungs are clear. Blunting of left costophrenic angle is seen con cerning for small left pleural effusion. No definite focal infiltrate. No pneumothorax. Mediastinum: Mediastinal contours appear normal. Heart size is normal. Bones and chest wall: No suspicious bony lesions. Overlying soft tissues appear unremarkable. IMPRESSION: Suggestion of trace left pleural effusion. No definite focal infiltrate, or pneumothorax. Reviewed by: Eduin Agustin MD on 04/05/2023 3:43 PM PDT Approved by: Eduin Agustin MD on 04/05/2023 3:43 PM PDT Station ID: [id number]
[2023-04-05 15:50] LABS: ALBUMIN/GLOBULIN RATIO 1.2 (1.0-2.2); BILIRUBIN,TOTAL 0.6 mg/dL (0.2-1.0); CALCIUM 10.2 mg/dL (8.5-10.3); CREATININE 0.8 mg/dL (0.6-1.3); POTASSIUM 3.7 mmol/L (3.5-4.5)
[2023-04-05 18:32] VITALS: BP 134/78; O2SAT 100
== END 2023-04-05 18:24 | disposition home or self-care (01) ==
LOC: ED 14:52
DX: R07.9 Chest pain, unspecified (principal)
CPT/HCPCS: 36415; 80053; 83690; 84484; 85025; 93005; 99283; 99284

== ENCOUNTER 2023-09-08 12:44 | Outpatient (CLI) | payer MEDICARE, OTHER ==
--- NOTE | 2023-09-08 13:09 | Sleep Patient Instructions ---
Sleep Center Visit Summary - Patient Visit Information Reason for Visit: Annual Visit - Patient Instructions Additional Instructions: You will continue with CPAP therapy with pressure set at 5-7 cmH2O. A supply prescription will be updated with your DME. We encourage you to continue to try to lose weight. Please follow up with the sleep care office in 1 year. - Clinic Information Contact: [facility] [address] [place] [address] [email or web address] T: [phone]
--- NOTE | 2023-09-08 13:13 | SLEEP CARE CONSULTATION ---
Information from patient questionnaire entered by Elizabeth Zepeda. I have reviewed and concur with the information entered by Elizabeth Zepeda. This document represents the service I personally performed and the decisions made by me, Jayshree Crespo ARNP. History of Present Illness Service Date and Time: 09/08/2023 1244 Previous diagnosis: Mild, Obstructive Sleep Apnea-Hypopnea Syndrome AHI: 5.5 (in 2013) Reason for follow up: annual (LAST SEEN 08/2022) Accompanied by: Spouse (Denis) Equipment type: CPAP (MCCARTHY Dreamstation, recertified NEED SD CARD) Equipment obtained from: [employer] (getting supplies as needed) Mask style: Nasal Backup mask available: Yes Last cushion change: 9 days ago Prior sleep studies: Yes Year and Where: 2013 - [facility] HPI additional information: AMOL EDWARDS was diagnosed to have mild, AHI 5.5, obstructive sleep apnea- hypopnea syndrome and returned with spouse today for CPAP therapy annual follow- up. Sleep Study - Results Prior sleep studies: Yes Year and Where: 2013 - [facility] CPAP Compliance Data - Data Reviewed with Patient Average duration of nightly device use: 8 HRS 1 MIN 19 SECS Compliance rate %: 95.1 (09/08/22-09/07/23; 360/365 days used) Current pressure setting (cmH2O): 5-7 Average residual AHI: 1.9 Central apnea: 0.3 Obstructive apnea: 0.6 Hypopnea: 1 Average large leak: 7 mins 36 secs Subjective Patient concerns: reports: dry mouth, nose, throat (dry mouth occasional; mouth may be coming open). denies: aerophagia, mask discomfort, air blowing in eyes, mask leak noise, condensation in mask/hose, nasal congestion, epistaxis Observed to snore while using device: No Current pressure setting perceived as: comfortable On therapy, patient: reports: sleeping better, awakening more refreshed, being more awake and alert during the day, more rested overall. denies: drowsiness while driving Initial [place] Sleepiness Scale score: 18 (in 2013) Current [place] Sleepiness Scale score: 10 Allergies and Home Medications Known drug allergies: Yes (penicillin) Drug allergies reviewed: Yes Home medication list reviewed: Yes (no changes) Allergy and home medication list: Allergies Penicillins Allergy (Verified 09/06/23 13:47) Unknown Review of Systems Review of systems same as previous: Yes (no changes) Physical Exam Vital signs obtained and entered by: ELIZABETH Seth MA Blood Pressure: 139/74 (RIGHT ARM) Cuff size: regular Heart Rate: 79 O2 Saturation: 98 Height: 5 ft 7 in Weight: 196 lb 3.2 oz Weight change since last visit: 16 lb loss Body Mass Index: 30.7 BMI Classification: Obese Impression and Plan 1. Obstructive Sleep Apnea-Hypopnea Syndrome, mild, with good treatment compliance and good apnea control. On CPAP therapy, the patient has better sleep quality and is more rested overall. Patient has significant improvement of their sleep apnea and is satisfied with current CPAP therapy. Patient occasionally gets dry mouth, more in the last month or so. We reviewed how to increase her humidity as needed if the dry mouth becomes more of an issue. We will follow-up with her next year. Patient's apnea severity and rationale for treatment to reduce apnea, improve sleep quality and reduce cardiovascular and cerebrovascular events was reviewed. I also reviewed the benefit of consistent device use of CPAP for hypertension, gastric reflux, depression and anxiety. 2. Obesity, unspecified. Currently patients BMI is 30.7. She has lost weight since last year. Obesity increases the risk of apnea, CPAP pressure requirements and overall health risks especially cardiovascular and diabetes. Thus patient is advised to continue to try to lose weight. * Continue auto CPAP pressure at 5-7 cmH2O * Update supply prescription * Notify me if snoring with mask or feeling that the pressure is too much or too little * Attempt to lose weight * Call this office if any problems using CPAP * Return for follow up in 12 months, or sooner if concerns arise Counseling Topics: Spare mask, Weight loss health impact Prescriptions: Device supplies Follow up with Sleep Care in: 1 year Visit Type: In Office Time Spent with Patient (minutes): 20 Provider Statement: I spent 100% of the Face to Face Visit with the patient with greater than 50% spent counseling the patient and coordination of care.
[2023-09-08 13:14] VITALS: BP 139/74; O2SAT 98
== END 2023-09-08 12:45 | disposition home or self-care (01) ==
LOC: SC 12:44
PROVIDERS: ATTEND Nurse Practitioner Family
DX: G47.33 Obstructive sleep apnea (adult) (pediatric) (principal); E66.9 Obesity, unspecified; Z68.30 Body mass index [BMI] 30.0-30.9, adult; I10 Essential (primary) hypertension; E78.5 Hyperlipidemia, unspecified; R10.10 Upper abdominal pain, unspecified
CPT/HCPCS: 36415; 80053; 80061; 82150; 83690; 85025; 99213; G0463; 83721; 99212

== ENCOUNTER 2023-09-08 13:17 | Outpatient (CLI) | payer MEDICARE, OTHER ==
[2023-09-08 17:49] LABS: BASOPHILS % (AUTO) 0.4 %; EOSINOPHILS # (AUTO) 0.2 10^3/uL (0.0-0.7); EOSINOPHILS % (AUTO) 2.6 %; HCT - HEMATOCRIT 38.9 % (37.0-47.0); HGB - HEMOGLOBIN 12.6 g/dL (12.0-16.0); LYMPHOCYTES # (AUTO) 3.1 10^3/uL (1.5-3.5); LYMPHOCYTES % (AUTO) 39.1 %; MEAN CORPUSCULAR HEMOGLOBIN 31.1 pg (27.0-31.0); MEAN CORPUSCULAR HGB CONC 32.4 g/dL (32.0-36.0); MEAN PLATELET VOLUME 11.7 fL (7.9-10.8); MONOCYTES # (AUTO) 0.6 10^3/uL (0.0-1.0); MONOCYTES % (AUTO) 7.9 %; NEUTROPHILS # (AUTO) 3.9 10^3/uL (1.5-6.6); NEUTROPHILS % (AUTO) 49.9 %; PLT - PLATELET COUNT 343 10^3/uL (130-450); RED BLOOD COUNT 4.05 10^6/uL (4.20-5.40); RED CELL DISTRIBUTION WIDTH 12.4 % (12.0-15.0); WHITE BLOOD COUNT 7.8 x10^3/uL (4.8-10.8)
[2023-09-08 18:03] LABS: ALBUMIN 4.2 g/dL (3.2-5.5); ALBUMIN/GLOBULIN RATIO 1.1 (1.0-2.2); ALKALINE PHOSPHATASE 145 IU/L (42-121); ALT ALANINE AMINOTRANSFERASE 31 IU/L (10-60); AMYLASE 17 U/L (28-100); AST ASPARTATE AMINOTRANSFERASE 21 IU/L (10-42); BILIRUBIN,TOTAL 0.5 mg/dL (0.2-1.0); BUN - BLOOD UREA NITROGEN 15 mg/dL (6-20); CALCIUM 10.1 mg/dL (8.5-10.3); CARBON DIOXIDE - CO2 31 mmol/L (21-32); CHLORIDE 102 mmol/L (101-111); CHOL/HDL RATIO 3.3 (<4.4); CHOLESTEROL 176 mg/dL; CREATININE 0.8 mg/dL (0.6-1.3); GFR - MDRD 72 (>89); GLUCOSE 106 mg/dL (74-104); HDL CHOLESTEROL 53 mg/dL; LDL CHOLESTEROL,CALCULATED 77 mg/dL; LDL/HDL RATIO 1.5 (<4.4); LIPASE 17 U/L (11-82); POTASSIUM 3.6 mmol/L (3.5-4.5); SODIUM 140 mmol/L (135-145); TOTAL PROTEIN 7.9 g/dL (6.4-8.9); TRIGLYCERIDES 230 mg/dL (48-352); VLDL CHOLESTEROL 46 mg/dL
== END 2023-09-08 13:18 | disposition home or self-care (01) ==
LOC: LAB.N 13:17
PROVIDERS: ATTEND Nurse Practitioner Family
DX: I10 Essential (primary) hypertension (principal); E78.5 Hyperlipidemia, unspecified; R10.10 Upper abdominal pain, unspecified
CPT/HCPCS: 36415; 80053; 80061; 82150; 83690; 83721; 85025

== ENCOUNTER 2023-09-13 07:39 | Outpatient (CLI) | payer MEDICARE, OTHER ==
--- NOTE | 2023-09-13 22:42 | Ultrasound Report ---
PROCEDURE: Abdomen Limited INDICATIONS: UPPER ABD PAIN TECHNIQUE: Real-time focused scanning was performed of the abdomen, with image documentation. COMPARISONS: None. FINDINGS: Liver: Increased liver echogenicity, commonly mild hepatic steatosis. Gallbladder: Absent. Biliary ducts: Intrahepatic bile ducts are non-dilated. Extrahepatic bile duct caliber measures 4 m m. Normal is 6-7 mm or less in diameter, or 10 mm or less post-cholecystectomy. Pancreas: Visualized portions of the pancreas are sonographically normal. Right kidney: Normal in size and echotexture. Right kidney measures 12.0 cm long. No hydronephrosis or nephrolithiasis. No solid masses. No complex renal cystic lesions which require follow-up. Aorta: Visualized aorta is normal in caliber at less than 3 cm. IVC: Intrahepatic inferior vena cava is patent. Miscellaneous: No free abdominal fluid. IMPRESSION: Mild hepatic steatosis. Otherwise, unremarkable exam. Reviewed by: Garrison Milan MD on 09/13/2023 10:41 PM PST Approved by: Garrison Milan MD on 09/13/2023 10:41 PM PST Station ID: [id number]
== END 2023-09-13 07:40 | disposition home or self-care (01) ==
LOC: DI 07:39
PROVIDERS: ATTEND Nurse Practitioner Family
DX: R10.10 Upper abdominal pain, unspecified (principal); K76.0 Fatty (change of) liver, not elsewhere classified

== ENCOUNTER 2024-03-05 17:59 | Emergency (ER) | payer MEDICARE, OTHER ==
[2024-03-05 19:51] LABS: BASOPHILS # (AUTO) 0.1 10^3/uL (0.0-0.1); BASOPHILS % (AUTO) 0.6 %; EOSINOPHILS # (AUTO) 0.5 10^3/uL (0.0-0.7); EOSINOPHILS % (AUTO) 5.9 %; HCT - HEMATOCRIT 39.7 % (37.0-47.0); HGB - HEMOGLOBIN 13.2 g/dL (12.0-16.0); LYMPHOCYTES # (AUTO) 3.2 10^3/uL (1.5-3.5); LYMPHOCYTES % (AUTO) 38.1 %; MEAN CORPUSCULAR HEMOGLOBIN 30.9 pg (27.0-31.0); MEAN CORPUSCULAR HGB CONC 33.2 g/dL (32.0-36.0); MEAN PLATELET VOLUME 9.9 fL (7.9-10.8); MONOCYTES # (AUTO) 0.7 10^3/uL (0.0-1.0); NEUTROPHILS % (AUTO) 47.2 %; PLT - PLATELET COUNT 342 10^3/uL (130-450); RED BLOOD COUNT 4.27 10^6/uL (4.20-5.40); RED CELL DISTRIBUTION WIDTH 12.3 % (12.0-15.0); WHITE BLOOD COUNT 8.4 x10^3/uL (4.8-10.8)
[2024-03-05 20:02] LABS: ALBUMIN 4.7 g/dL (3.2-5.5); ALBUMIN/GLOBULIN RATIO 1.5 (1.0-2.2); BILIRUBIN,TOTAL 0.4 mg/dL (0.2-1.0); CREATININE 0.9 mg/dL (0.6-1.3); POTASSIUM 3.7 mmol/L (3.5-4.5); TOTAL PROTEIN 7.8 g/dL (6.4-8.9)
[2024-03-05] MEDS: SODIUM CHLORIDE 0.9% 1,000 ML IV STA (20:14)
[2024-03-05 20:27] LABS: BILIRUBIN,URINE NEGATIVE (NEGATIVE); GLUCOSE, URINE (UA) NEGATIVE (NEGATIVE); KETONES,URINE (UA) NEGATIVE (NEGATIVE); LEUKOCYTE ESTERASE, URINE NEGATIVE (NEGATIVE); NITRITE,URINE NEGATIVE (NEGATIVE); OCCULT BLOOD,URINE NEGATIVE (NEGATIVE); PROTEIN,URINE NEGATIVE (NEGATIVE); UROBILINOGEN,URINE 0.2 (NORMAL) E.U./dL (NORMAL)
[2024-03-05 20:28] LABS: CLARITY,URINE CLEAR (CLEAR)
[2024-03-05] MEDS ORDERED: iohexoL-300 100 ML VIAL ONE (22:46)
[2024-03-05] MEDS: iohexoL-300 100 ML VIAL IVP ONE (23:15)
--- NOTE | 2024-03-06 00:28 | CT Report ---
PROCEDURE: Abdomen/Pelvis W INDICATIONS: LLQ pain, rectal bleeding CONTRAST: 100 ML OMNI 300 TECHNIQUE: After the administration of intravenous contrast, a CT scan of the abdomen and pelvis was performed. Images were recorded and evaluated at appropriate window settings. Reformats: coronal and sagittal. F or radiation dose reduction, the following was used: automated exposure control, adjustment of mA and /or kV according to patient size. COMPARISON: 02/01/2020. FINDINGS: Image quality: Diagnostic. Lower chest: Stable 4 mm pleural-based nodule in the right lung base. Liver: Hepatic steatosis. Gallbladder: Surgically absent Biliary tree: No intrahepatic or extrahepatic dilation, accounting for age. Spleen: No splenomegaly. Pancreas: No pancreatic ductal dilation. No peripancreatic inflammation. Adrenals: No adrenal nodule. Kidneys and ureters: No hydronephrosis. No renal cystic lesion which requires follow up. No solid mas s. Stomach, bowel and peritoneum: No gastric or small bowel dilation. No abnormal wall thickening. No pa thologic free fluid. Diverticulosis without evidence of diverticulitis. Normal appendix. Lymph nodes: No central or retroperitoneal adenopathy. Vessels: No infrarenal aortic aneurysm. Patent portal vein. Atherosclerosis. PELVIS Reproductive organs: Unremarkable. Bladder: No abnormal wall thickening, accounting for underdistention. Pelvic lymph nodes: No pelvic adenopathy by size criteria. Bones: No aggressive osseous abnormality. Multilevel spondylosis. No acute compression fractures. Other: No significant ventral or inguinal hernia. IMPRESSION: CT abdomen and pelvis without acute abnormality. Colonic diverticulosis without acute diverticulitis. Normal appendix. Hepatic steatosis. Status post cholecystectomy. Stable 4 mm pleural-based nodule in the right lower lobe. Its stability over time is consistent with a benign process. Reviewed by: Jose C Madison MD on 03/06/2024 12:27 AM PDT Approved by: Jose C Madison MD on 03/06/2024 12:27 AM PDT Station ID: [id number]
--- NOTE | 2024-03-06 00:33 | ED Physician Documentation ---
PD HPI ABD PAIN - Stated complaint Stated Complaint: PASSING BLOOD/ABD PX - Chief complaint Chief Complaint: Abd Pain - History obtained from History obtained from: Patient - Additional information Additional information: The patient comes to the emergency department chief complaint of left upper quadrant pain and bright red blood per rectum when she tries to have a bowel movement. She has had this happen repeatedly before and has a GI appointment coming up in April. She had both a CT scan and a colonoscopy/endoscopy in 2019 and reports that she was not aware of them showing anything significant. The pt states she has chronic constipation, due to her psych meds. She is on Dulcolax daily, and sometimes supplements with mag citrate. She last did this 5 days ago, and that was her last normal BM. PD PAST MEDICAL HISTORY - Past Medical History Past Medical History: Yes Cardiovascular: Hypertension Respiratory: None Neuro: None Endocrine/Autoimmune: None GI: None CLOTH WINDING SUPERVISOR: None : None HEENT: None Psych: Depression, Anxiety Musculoskeletal: Gout Derm: None - Past Surgical History Past Surgical History: Yes General: Cholecystectomy, Colonoscopy /CLOTH WINDING SUPERVISOR: Hysterectomy - Present Medications Home Medications: Ambulatory Orders Medication Instructions Recorded Confirmed Colchicine 0.6 mg PO DAILY 03/21/20 09/08/22 Cyanocobalamin (Vitamin B-12) 1,000 mcg PO DAILY 03/21/20 09/08/22 [Vitamin B-12] Estrogens, Conjugated [Premarin] 0.625 mg PO DAILY 03/21/20 09/08/22 Lurasidone HCl [Latuda] 60 mg PO DAILY 03/21/20 09/08/22 Omeprazole 20 mg PO DAILY 03/21/20 09/08/22 Simvastatin 20 mg PO DAILY 03/21/20 09/08/22 Zolpidem Tartrate 10 mg PO DAILY 03/21/20 09/08/22 amLODIPine [Norvasc] 5 mg PO ONCE 03/21/20 09/08/22 - Allergies Allergies/Adverse Reactions: Allergies Allergy/AdvReac Type Severity Reaction Status Date / Time Penicillins Allergy Unknown Verified 03/05/24 18:14 - Social History Does the pt smoke?: No Smoking Status: Never smoker Does the pt drink ETOH?: No Does the pt have substance abuse?: No - Immunizations Immunizations are current?: Yes PD ED PE NORMAL - Vitals Vital signs reviewed: Yes - General General: Alert and oriented X 3, No acute distress, Well developed/nourished - HEENT HEENT: Atraumatic, EOMI, Moist mucous membranes - Neck Neck: Supple, no meningeal sign - Cardiac Cardiac: RRR, No murmur - Respiratory Respiratory: No respiratory distress, Clear bilaterally - Abdomen Abdomen: Soft, Non distended, Other (mild tenderness, L mid-lower quadrant, no rebound or guarding.) - Derm Derm: Normal color, Warm and dry, No rash - Extremities Extremities: No deformity - Neuro Neuro: Other (Alert, grossly intact.) - Psych Psych: Normal mood, Normal affect Results - Vitals Vitals: Oxygen O2 Source Room air - Labs Labs: Laboratory Tests 03/05/24 03/05/24 03/05/24 19:44 19:44 20:15 WBC 8.4 RBC 4.27 Hgb 13.2 Hct 39.7 MCV 93.0 MCH 30.9 MCHC 33.2 RDW 12.3 Plt Count 342 MPV 9.9 Neut # (Auto) 4.0 Lymph # (Auto) 3.2 [place] # (Auto) 0.7 Eos # (Auto) 0.5 Baso # (Auto) 0.1 Absolute Nucleated RBC 0.00 Nucleated RBC % 0.0 Sodium 138 Potassium 3.7 Chloride 102 Carbon Dioxide 28 Anion Gap 8.0 BUN 14 Creatinine 0.9 Estimated GFR (MDRD) 63 L Glucose 101 Calcium 10.0 Total Bilirubin 0.4 AST 20 ALT 26 Alkaline Phosphatase 134 H Total Protein 7.8 Albumin 4.7 Globulin 3.1 Albumin/Globulin Ratio 1.5 Lipase 24 Urine Color YELLOW Urine Clarity CLEAR Urine pH 6.0 Ur Specific [place] 1.015 Urine Protein NEGATIVE Urine Glucose (UA) NEGATIVE Urine Ketones NEGATIVE Urine Occult Blood NEGATIVE Urine Nitrite NEGATIVE Urine Bilirubin NEGATIVE Urine Urobilinogen 0.2 (NORMAL) Ur Leukocyte Esterase NEGATIVE Ur Microscopic Review NOT INDICATED Urine Culture Comments NOT INDICATED - Rads (name of study) CT abd/pelvis Relevant Findings:: Final report received, See rad report (diverticulosis, no diverticulitis) PD Medical Decision Making - ED course Complexity details: reviewed old records, reviewed results, re-evaluated patient, considered differential, d/w patient, d/w family ED course: I reviewed the pt's records, and found that her last CT and scopes here were in 2019. Labs were unremarkable tonight. I repeated the CT, which showed diverticulosis without itis, and no other concerning findings. I d/w pt that based on her description, I suspect internal hemorrhoids are the culprit for her bleeding, especially with the chronic constipation. I am not sure what is causing her pain, but she does have a GI appointment coming up to help sort this out. The pt is stable for d/c. We have discussed the usual indications for return. Departure - Departure Disposition: 01 Home, Self Care Clinical Impression: Hematochezia Abdominal pain Qualifiers: Abdominal location: left upper quadrant Qualified Code(s): R10.12 - Left upper quadrant pain Condition: Stable Instructions: ED Abdominal Pain Female Non-Specific Abdominal Pain, ED Hematochezia Stable Comments: Your labs look good and do not show any evidence that you have lost a dangerous amount of blood. Your CT scan this time as well as previously, shows the presence of diverticuli, but they are not inflamed. Diverticulitis is the term for when you have diverticuli that are inflamed. As such, there is no role for antibiotics. It is not clear exactly where in your lower GI tract the bleeding is coming from. 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 The most common scenario for this is internal hemorrhoids, which are swollen veins generally arise from increased pressure in the rectal area. Many women develop them when they are , but they can also develop as a result of chronic constipation. The best course of action at this time is to follow-up with the meter attendant as you are planning to do. It sounds like you are doing a lot of the things that we would already recommend for hemorrhoids, such as eating a high-fiber diet to try to reduce constipation. You may get some Preparation H [id number] and use it to try to help with the hemorrhoids. You should probably take some more magnesium citrate if you do not have a bowel movement in the next couple of days. Please continue to follow with your primary doctor until you can see your meter attendant. There is no emergent condition that is showing up in any of your testing or on your CT, and you are stable for discharge today. Forms: PCP List Discharge Date/Time: 03/06/24 00:52
[2024-03-06 00:58] VITALS: BP 122/67; O2SAT 99
== END 2024-03-06 00:52 | disposition home or self-care (01) ==
LOC: ED 17:59
DX: K92.1 Melena (principal); R10.12 Left upper quadrant pain; I10 Essential (primary) hypertension; F32.A Depression, unspecified; F41.9 Anxiety disorder, unspecified
CPT/HCPCS: 36415; 74177; 80053; 81003; 83690; 85025; 99283; 99284; Q9967; 81001; 87086

== ENCOUNTER 2024-05-11 14:35 | Outpatient (CLI) | payer MEDICARE, OTHER ==
--- NOTE | 2024-05-11 13:11 | SLEEP CARE CONSULTATION ---
Information from patient questionnaire entered by Mariann Acuna. I have reviewed and concur with the information entered by Mariann Acuna. This document represents the service I personally performed and the decisions made by , Jayshree Crespo ARNP. History of Present Illness Service Date and Time: 05/11/2024 1300 Previous diagnosis: Mild, Obstructive Sleep Apnea-Hypopnea Syndrome AHI: 5.5 (in 2013) Reason for follow up: other (7 month follow up) Accompanied by: Spouse Equipment type: CPAP (M[employer]AR[employer]Y Dreamstation, recertified NEED SD CARD) Equipment obtained from: [employer] (getting supplies as needed) Mask style: Nasal Mask brand: Respironics (Dreamwear) Backup mask available: Yes Last cushion change: Wednesday Prior sleep studies: Yes Year and Where: 2013 - [facility] HPI additional information: AMOL EDWARDS was diagnosed to have mild, AHI 5.5, obstructive sleep apnea- hypopnea syndrome and returns via video appointment today for CPAP therapy seven month follow-up. Sleep Study - Results Prior sleep studies: Yes Year and Where: 2013 - [facility] CPAP Compliance Data - Data Reviewed with Patient Average duration of nightly device use: 7 h 15 min Compliance rate %: 98.9 (178/180 days used) Current pressure setting (cmH2O): 5 - 7 Average residual AHI: 1.8 Average large leak: 4 mins 57 secs Subjective Patient concerns: reports: other (smoky smell from CPAP) Observed to snore while using device: No Current pressure setting perceived as: comfortable On therapy, patient: reports: sleeping better, awakening more refreshed, being more awake and alert during the day, more rested overall. denies: drowsiness while driving Initial [place] Sleepiness Scale score: 18 (in 2013) Current [place] Sleepiness Scale score: 5 Allergies and Home Medications Known drug allergies: Yes (as listed) Drug allergies reviewed: Yes Home medication list reviewed: Yes (Latuda 40 mg at night) Allergy and home medication list: Allergies Penicillins Allergy (Verified 03/05/24 18:14) Unknown Review of Systems Review of systems same as previous: Yes (no changes) Physical Exam Vital signs obtained and entered by: Jayshree Mota NP Height: 5 ft 7 in Weight: 180 lb (per pt) Body Mass Index: 28.1 BMI Classification: Overweight Impression and Plan 1. Obstructive Sleep Apnea-Hypopnea Syndrome, mild, with good treatment compliance and good apnea control. On CPAP therapy, the patient has better sleep quality and is more rested overall. She says there is a burnt rubber smell coming from her machine. She changed out the hose filter and everything and it really improved for a while but then came back. She is eligible for a new device since her device was last updated in April 2019. The patients CPAP is over 5 years old and of reasonable use. In addition, there is a burnt rubber odor, a sign of malfunction. Thus, the CPAP will be updated. A DWO prescription will be made. Compliance guidelines for new device and follow up discussed. Patient's apnea severity and rationale for treatment to reduce apnea, improve sleep quality and reduce cardiovascular and cerebrovascular events was reviewed. I also reviewed the benefit of consistent device use of CPAP for hypertension, gastric reflux, depression/anxiety. 2. Overweight, unspecified. Currently patients BMI is 28.1. Obesity increases the risk of apnea, CPAP pressure requirements and overall health risks especially cardiovascular and diabetes. Thus patient is advised to lose weight. * Continue auto CPAP pressure at 5-7 cmH2O * Update machine * Notify me if snoring with mask or feeling that the pressure is too much or too little * Attempt to lose weight * Call this office if any problems using CPAP * Return for follow up one month after obtaining new device, or sooner if concerns arise Counseling Topics: Spare mask, Weight loss health impact Prescriptions: Auto CPAP Visit Type: Telehealth Video Video Type: DoximTopOPPS Patient Location: Home Location of Provider: Office Patient agrees and consents to this telehealth visit type: Yes Patient agrees to have their insurance billed: Yes Time Spent with Patient (minutes): 16 Provider Statement: I spent 100% of the Telehealth Video Call with the patient with greater than 50% spent counseling the patient and coordination of care.
== END 2024-05-11 14:36 | disposition home or self-care (01) ==
LOC: SC 14:35
PROVIDERS: ATTEND Nurse Practitioner Family
DX: G47.33 Obstructive sleep apnea (adult) (pediatric) (principal); E66.3 Overweight; Z68.28 Body mass index [BMI] 28.0-28.9, adult